=== PATIENT | female | born 1935 | race Caucasian/White ===

== ENCOUNTER 2023-08-08 15:50 | Inpatient (IN) | payer MEDICAID ==
[~2023-08-08] VITALS: Ht 121.9 cm; Wt 42.2 kg
[2023-08-08 15:52] VITALS: BP_SYST 160; PULSE 90; RESP 18; TEMP 98.3; O2SAT 98
[2023-08-08 16:50] LABS: BASOPHILS # (AUTO) 0.1 K/uL (0.0-0.2); BASOPHILS % (AUTO) 0.3 % (0.0-2.0); EOSINOPHILS # (AUTO) 0.1 K/uL (0.0-0.4); EOSINOPHILS % (AUTO) 0.9 % (0.0-4.0); HEMATOCRIT 40.4 % (36-48); HEMOGLOBIN 13.2 g/dL (12.0-16.0); LYMPHOCYTES # (AUTO) 1.6 K/uL (1.0-5.5); LYMPHOCYTES % (AUTO) 10.1 % (20.5-51.5); MEAN CORPUSCULAR HEMOGLOBIN 28 pg (27-31); MEAN CORPUSCULAR HGB CONC 33 % (32-36); MEAN CORPUSCULAR VOLUME 87 fL (79.0-98.0); MONOCYTES # (AUTO) 0.6 K/uL (0.0-1.0); MONOCYTES % (AUTO) 3.9 % (1.7-9.3); NEUTROPHILS # (AUTO) 13.5 K/uL (1.8-7.7); NEUTROPHILS % (AUTO) 84.8 % (40.0-70.0); PLATELET COUNT (AUTO) 222 K/uL (130-430); RED BLOOD CELL COUNT(AUTO) 4.67 MIL/uL (4.2-6.2); RED CELL DISTRIBUTION WIDTH 14.2 % (9.0-15.0); WHITE BLOOD COUNT (AUTO) 15.9 K/uL (4.8-10.8)
[2023-08-08 16:56] LABS: INR 1.1 (0.8-1.2)
[2023-08-08 17:02] LABS: ANION GAP 14 (5-15); CARBON DIOXIDE 19 mmol/L (23-29); CHLORIDE 101 mmol/L (98-107); CREATININE 0.82 mg/dL (0.55-1.30); GLUCOSE 235 mg/dL (74-106); POTASSIUM 3.7 mmol/L (3.5-5.1); SODIUM SERUM 134 mmol/L (136-145); UREA NITROGEN, BLOOD 15 mg/dL (8-21)
[2023-08-08 17:07] LABS: ALANINE AMINOTRANSFERASE 8 U/L (12-78); ALBUMIN 3.4 g/dL (3.4-4.8); ASPARTATE AMINOTRANSFERASE 16 U/L (10-37); BILIRUBIN,DIRECT 0.2 mg/dL (0.0-0.3); CHOLESTEROL 152 mg/dL (<200); CREATINE KINASE, TOTAL 64 U/L (26-192); HDL CHOLESTEROL 55 mg/dL (>55); TOTAL BILIRUBIN 0.8 mg/dL (0.0-1.0); TOTAL PROTEIN, SERUM 6.6 g/dL (6.4-8.3); TRIGLYCERIDES 107 mg/dL (30-150)
[2023-08-08 17:28] LABS: BILIRUBIN,URINE NEGATIVE (NEGATIVE); CLARITY/URINE CLEAR (CLEAR); COLOR,URINE YELLOW (YELLOW); GLUCOSE,URINE NEGATIVE (NEGATIVE); KETONES,URINE NEGATIVE (NEGATIVE); LEUKOCYTE ESTERASE ,URINE 2+ (NEGATIVE); NITRITE, URINE NEGATIVE (NEGATIVE); PROTEIN URINE NEGATIVE (NEGATIVE); UROBILINOGEN,URINE 0.2 (0.2-1.0)
[2023-08-08 17:31] LABS: BLOOD, URINE TRACE (NEGATIVE)
[2023-08-08 17:35] LABS: BACTERIA,URINE MANY /HPF (None Seen)
[2023-08-08] MEDS ORDERED: cefTRIAXone 1 GM in D5W 50 ML IV ONE (17:45)
[2023-08-08] MEDS: NACL 0.9% 1,000 ML IV ONE ×2 (17:45→19:13)
[2023-08-08] MEDS ORDERED: NACL 0.9% 1,000 ML IV ONE ×2 (17:45→18:45)
[2023-08-08] MEDS ORDERED: cefTRIAXone 1 GM VIAL ONE (18:43)
[2023-08-09] MEDS ORDERED: cefTRIAXone 1 GM in D5W 50 ML IV ONE (09:00)
[2023-08-09] MEDS ORDERED: cefTRIAXone 1 GM VIAL IM ONE (09:00)
[2023-08-09] MEDS ORDERED: NACL 0.9% 1,000 ML IV SCH (09:45)
[2023-08-09] MEDS ORDERED: LORazepam 2 MG/ML VIAL IVP PRN ×2 (11:00→17:45)
[2023-08-09] MEDS ORDERED: LORazepam 2 MG/ML VIAL ONE (11:06)
[2023-08-09] MEDS ORDERED: FLUMAZENIL 0.1 MG/ML IVP ONE (11:08)
[2023-08-09] MEDS: 0.45% NACL 1,000 ML IV SCH ×2 (13:00→19:36)
[2023-08-09] MEDS ORDERED: METF-1069 PO (14:56)
[2023-08-09] MEDS ORDERED: LISI20TA30 PO (14:56)
[2023-08-09 16:00] VITALS: BP_SYST 111; PULSE 92; RESP 20; TEMP 98.3; O2SAT 95
[2023-08-09 16:36] VITALS: BP_SYST 154; PULSE 105; RESP 19; TEMP 98.3; O2SAT 95
[2023-08-09] MEDS ORDERED: DIPHENHYDRAMINE HCL 12.5 MG/5 ML UDC PO PRN (17:45)
[2023-08-09 20:00] VITALS: BP_SYST 141; PULSE 77; RESP 18; RESP 20; TEMP 97.3; TEMP 98.8; O2SAT 100; O2SAT 16; O2SAT 98
[2023-08-10] VITALS (7 sets, daily range): BP systolic 103–138; PULSE 78–107; RESP 17–20; TEMP 97.5–98.7; O2SAT 94–98
[2023-08-10 08:09] LABS: BASOPHILS % (AUTO) 0.3 % (0.0-2.0); EOSINOPHILS # (AUTO) 0.2 K/uL (0.0-0.4); EOSINOPHILS % (AUTO) 2.7 % (0.0-4.0); HEMATOCRIT 37.3 % (36-48); HEMOGLOBIN 12.2 g/dL (12.0-16.0); LYMPHOCYTES # (AUTO) 1.4 K/uL (1.0-5.5); LYMPHOCYTES % (AUTO) 15.7 % (20.5-51.5); MEAN CORPUSCULAR HEMOGLOBIN 29 pg (27-31); MEAN CORPUSCULAR HGB CONC 33 % (32-36); MEAN CORPUSCULAR VOLUME 87 fL (79.0-98.0); MONOCYTES # (AUTO) 0.4 K/uL (0.0-1.0); MONOCYTES % (AUTO) 4.8 % (1.7-9.3); NEUTROPHILS # (AUTO) 6.6 K/uL (1.8-7.7); NEUTROPHILS % (AUTO) 76.5 % (40.0-70.0); PLATELET COUNT (AUTO) 231 K/uL (130-430); RED BLOOD CELL COUNT(AUTO) 4.28 MIL/uL (4.2-6.2); RED CELL DISTRIBUTION WIDTH 14.4 % (9.0-15.0); WHITE BLOOD COUNT (AUTO) 8.7 K/uL (4.8-10.8)
[2023-08-10 08:36] LABS: ANION GAP 11 (5-15); CALCIUM 8.9 mg/dL (8.4-11.0); CARBON DIOXIDE 22 mmol/L (23-29); CHLORIDE 105 mmol/L (98-107); CREATININE 0.76 mg/dL (0.55-1.30); GLUCOSE 137 mg/dL (74-106); POTASSIUM 3.3 mmol/L (3.5-5.1); SODIUM SERUM 138 mmol/L (136-145); UREA NITROGEN, BLOOD 10 mg/dL (8-21)
[2023-08-10] MEDS: 0.45% NACL 1,000 ML IV SCH ×2 (09:27→23:39)
[2023-08-10] MEDS: cefTRIAXone 1 GM IVPB PREMIX 50 ML IV SCH (09:29)
[2023-08-10] MEDS ORDERED: GLUCOSE (DEXTROSE) ORAL GEL -Adults PO PRN (11:30)
[2023-08-10] MEDS ORDERED: DEXTROSE 50% JECT 50 ML DISP.SYRIN IVP PRN (11:30)
[2023-08-10] MEDS ORDERED: D5W 1,000 ML IV PRN (11:30)
[2023-08-10] MEDS: INSULIN REGULAR, HUMAN 100 UNITS/ML, 3 ML VIAL (humuLIN R) SUBCUT PRN ×2 (17:39→20:46)
[2023-08-11] VITALS: BP_SYST 132; PULSE 69; RESP 17; TEMP 97.6; O2SAT 97
[2023-08-11] MEDS: 0.45% NACL 1,000 ML IV SCH ×2 (05:25→20:55)
[2023-08-11 07:44] VITALS: BP_SYST 150; PULSE 67; RESP 16; TEMP 97.7; O2SAT 99
[2023-08-11 08:23] VITALS: O2SAT 0; O2SAT 100
[2023-08-11] MEDS: cefTRIAXone 1 GM IVPB PREMIX 50 ML IV SCH (11:37)
[2023-08-11] MEDS ORDERED: POTASSIUM CHLORIDE 20 MEQ/PKT PACKET PO ONE (11:45)
[2023-08-11] MEDS ORDERED: POTASSIUM CHLORIDE 20 MEQ/PKT PACKET ONE (11:58)
[2023-08-11] MEDS: INSULIN REGULAR, HUMAN 100 UNITS/ML, 3 ML VIAL (humuLIN R) SUBCUT PRN ×2 (12:04→18:50)
[2023-08-11 16:32] VITALS: BP_SYST 135; PULSE 77; RESP 16; TEMP 97.6; O2SAT 100
[2023-08-11 20:00] VITALS: BP_SYST 129; PULSE 78; RESP 18; TEMP 97; O2SAT 99
[2023-08-12 01:25] VITALS: BP_SYST 136; PULSE 69; RESP 16; TEMP 98.2; O2SAT 100
[2023-08-12] MEDS: 0.45% NACL 1,000 ML IV SCH ×3 (05:28→20:52)
[2023-08-12 06:57] LABS: BASOPHILS % (AUTO) 0.5 % (0.0-2.0); EOSINOPHILS # (AUTO) 0.5 K/uL (0.0-0.4); EOSINOPHILS % (AUTO) 6.3 % (0.0-4.0); HEMATOCRIT 34.4 % (36-48); HEMOGLOBIN 11.5 g/dL (12.0-16.0); LYMPHOCYTES # (AUTO) 1.4 K/uL (1.0-5.5); LYMPHOCYTES % (AUTO) 19.3 % (20.5-51.5); MEAN CORPUSCULAR HEMOGLOBIN 29 pg (27-31); MEAN CORPUSCULAR HGB CONC 33 % (32-36); MEAN CORPUSCULAR VOLUME 87 fL (79.0-98.0); MONOCYTES # (AUTO) 0.4 K/uL (0.0-1.0); MONOCYTES % (AUTO) 5.9 % (1.7-9.3); NEUTROPHILS # (AUTO) 4.9 K/uL (1.8-7.7); PLATELET COUNT (AUTO) 212 K/uL (130-430); RED BLOOD CELL COUNT(AUTO) 3.96 MIL/uL (4.2-6.2); RED CELL DISTRIBUTION WIDTH 14.6 % (9.0-15.0); WHITE BLOOD COUNT (AUTO) 7.1 K/uL (4.8-10.8)
[2023-08-12 07:28] LABS: ANION GAP 8 (5-15); CALCIUM 7.7 mg/dL (8.4-11.0); CARBON DIOXIDE 23 mmol/L (23-29); CHLORIDE 107 mmol/L (98-107); CREATININE 0.69 mg/dL (0.55-1.30); GLUCOSE 127 mg/dL (74-106); POTASSIUM 3.4 mmol/L (3.5-5.1); SODIUM SERUM 138 mmol/L (136-145); UREA NITROGEN, BLOOD 10 mg/dL (8-21)
[2023-08-12 08:00] VITALS: BP_SYST 128; PULSE 66; RESP 16; TEMP 98.2; O2SAT 99
[2023-08-12] MEDS: cefTRIAXone 1 GM IVPB PREMIX 50 ML IV SCH (08:52)
[2023-08-12 09:45] VITALS: O2SAT 99
[2023-08-12] MEDS: INSULIN REGULAR, HUMAN 100 UNITS/ML, 3 ML VIAL (humuLIN R) SUBCUT PRN ×3 (11:57→21:03)
[2023-08-12 12:00] VITALS: BP_SYST 124; PULSE 73; RESP 16; TEMP 98.1; O2SAT 99
[2023-08-12 16:00] VITALS: BP_SYST 140; PULSE 87; RESP 16; TEMP 98.6; O2SAT 99
[2023-08-12 20:16] VITALS: BP_SYST 145; PULSE 68; RESP 16; TEMP 98; O2SAT 97; O2SAT 98
[2023-08-13 00:12] VITALS: BP_SYST 132; PULSE 84; RESP 17; TEMP 98; O2SAT 99
[2023-08-13] MEDS: 0.45% NACL 1,000 ML IV SCH ×2 (05:32→17:28)
[2023-08-13 08:00] VITALS: O2SAT 96
[2023-08-13 09:50] LABS: ALANINE AMINOTRANSFERASE 8 U/L (12-78); ALBUMIN 2.6 g/dL (3.4-4.8); ANION GAP 9 (5-15); ASPARTATE AMINOTRANSFERASE 19 U/L (10-37); CALCIUM 8.7 mg/dL (8.4-11.0); CARBON DIOXIDE 21 mmol/L (23-29); CHLORIDE 106 mmol/L (98-107); CREATININE 0.83 mg/dL (0.55-1.30); GLUCOSE 151 mg/dL (74-106); POTASSIUM 4.2 mmol/L (3.5-5.1); SODIUM SERUM 136 mmol/L (136-145); TOTAL BILIRUBIN 0.5 mg/dL (0.0-1.0); TOTAL PROTEIN, SERUM 5.7 g/dL (6.4-8.3); UREA NITROGEN, BLOOD 23 mg/dL (8-21)
[2023-08-13] MEDS: cefTRIAXone 1 GM IVPB PREMIX 50 ML IV SCH (10:38)
[2023-08-13] MEDS: INSULIN REGULAR, HUMAN 100 UNITS/ML, 3 ML VIAL (humuLIN R) SUBCUT PRN ×2 (11:48→21:28)
[2023-08-13 12:38] LABS: BASOPHILS % (AUTO) 0.6 % (0.0-2.0); EOSINOPHILS # (AUTO) 0.4 K/uL (0.0-0.4); EOSINOPHILS % (AUTO) 4.7 % (0.0-4.0); HEMATOCRIT 34.9 % (36-48); HEMOGLOBIN 11.2 g/dL (12.0-16.0); LYMPHOCYTES # (AUTO) 1.2 K/uL (1.0-5.5); LYMPHOCYTES % (AUTO) 15.4 % (20.5-51.5); MEAN CORPUSCULAR HEMOGLOBIN 29 pg (27-31); MEAN CORPUSCULAR HGB CONC 32 % (32-36); MEAN CORPUSCULAR VOLUME 90 fL (79.0-98.0); MONOCYTES # (AUTO) 0.4 K/uL (0.0-1.0); MONOCYTES % (AUTO) 5.5 % (1.7-9.3); NEUTROPHILS # (AUTO) 5.5 K/uL (1.8-7.7); NEUTROPHILS % (AUTO) 73.8 % (40.0-70.0); PLATELET COUNT (AUTO) 146 K/uL (130-430); RED BLOOD CELL COUNT(AUTO) 3.89 MIL/uL (4.2-6.2); RED CELL DISTRIBUTION WIDTH 14.6 % (9.0-15.0); WHITE BLOOD COUNT (AUTO) 7.5 K/uL (4.8-10.8)
[2023-08-13 19:00] VITALS: BP_SYST 128; PULSE 86; RESP 16; TEMP 97.8; O2SAT 96; O2SAT 98
[2023-08-13 20:00] VITALS: BP_SYST 128; PULSE 86; RESP 16; TEMP 97.8; O2SAT 98
[2023-08-14] VITALS: BP_SYST 126; PULSE 82; RESP 16; TEMP 97.2; O2SAT 98
[2023-08-14] MEDS: 0.45% NACL 1,000 ML IV SCH (06:18)
[2023-08-14 06:50] LABS: BASOPHILS % (AUTO) 0.3 % (0.0-2.0); EOSINOPHILS # (AUTO) 0.4 K/uL (0.0-0.4); EOSINOPHILS % (AUTO) 5.7 % (0.0-4.0); HEMATOCRIT 33.3 % (36-48); LYMPHOCYTES # (AUTO) 1.6 K/uL (1.0-5.5); LYMPHOCYTES % (AUTO) 20.2 % (20.5-51.5); MEAN CORPUSCULAR HEMOGLOBIN 29 pg (27-31); MEAN CORPUSCULAR HGB CONC 33 % (32-36); MEAN CORPUSCULAR VOLUME 86 fL (79.0-98.0); MONOCYTES # (AUTO) 0.5 K/uL (0.0-1.0); MONOCYTES % (AUTO) 6.6 % (1.7-9.3); NEUTROPHILS # (AUTO) 5.3 K/uL (1.8-7.7); NEUTROPHILS % (AUTO) 67.2 % (40.0-70.0); PLATELET COUNT (AUTO) 245 K/uL (130-430); RED BLOOD CELL COUNT(AUTO) 3.86 MIL/uL (4.2-6.2); RED CELL DISTRIBUTION WIDTH 14.3 % (9.0-15.0); WHITE BLOOD COUNT (AUTO) 7.9 K/uL (4.8-10.8)
[2023-08-14 07:31] LABS: ALANINE AMINOTRANSFERASE 8 U/L (12-78); ALBUMIN 2.7 g/dL (3.4-4.8); ANION GAP 10 (5-15); ASPARTATE AMINOTRANSFERASE 10 U/L (10-37); CALCIUM 7.7 mg/dL (8.4-11.0); CARBON DIOXIDE 21 mmol/L (23-29); CHLORIDE 105 mmol/L (98-107); CREATININE 0.79 mg/dL (0.55-1.30); GLUCOSE 117 mg/dL (74-106); POTASSIUM 3.7 mmol/L (3.5-5.1); SODIUM SERUM 136 mmol/L (136-145); TOTAL BILIRUBIN 0.4 mg/dL (0.0-1.0); TOTAL PROTEIN, SERUM 5.6 g/dL (6.4-8.3); UREA NITROGEN, BLOOD 21 mg/dL (8-21)
[2023-08-14 08:00] VITALS: O2SAT 99
[2023-08-14] MEDS: cefTRIAXone 1 GM IVPB PREMIX 50 ML IV SCH (10:34)
[2023-08-14] MEDS: INSULIN REGULAR, HUMAN 100 UNITS/ML, 3 ML VIAL (humuLIN R) SUBCUT PRN (11:52)
[2023-08-14] MEDS ORDERED: DOXY100C5 PO (15:29)
[2023-08-14 17:22] VITALS: BP_SYST 126; PULSE 82; RESP 18; TEMP 97.2; O2SAT 98
== END 2023-08-14 20:30 | disposition home or self-care (01) | DRG 720 ==
LOC: SED 15:50 → STU 18:34 → SMU 08-09 16:43 → STU 08-09 16:44 → SMU 08-13 04:19
PROVIDERS: ADMIT Specialist; ATTEND Specialist
DX: A41.9 Sepsis, unspecified organism (principal); G93.41 Metabolic encephalopathy; Z89.611 Acquired absence of right leg above knee; Z89.612 Acquired absence of left leg above knee; N39.0 Urinary tract infection, site not specified; H54.61 Unqualified visual loss, right eye, normal vision left eye; F03.B0 Unspecified dementia, moderate, without behavioral disturbance, psychotic disturbance, mood disturbance, and anxiety; E11.9 Type 2 diabetes mellitus without complications; Z79.899 Other long term (current) drug therapy; Z79.84 Long term (current) use of oral hypoglycemic drugs; Z74.01 Bed confinement status; Z95.0 Presence of cardiac pacemaker; Z88.0 Allergy status to penicillin
CPT/HCPCS: 36415; 70450-TC; 71045; 76376; 76770; 80048; 80053; 80061; 80076; 81000; 81001; 81015; 82550; 82962; 83037; 83605; 84484; 85025; 85610-TC; 85730-TC; 87040; 87086; 93005; 93306; 96365; 97110-GP; 97530-GP; 99291; G0378; J0696; J2060; J3490; J7060; Q9967